=== PATIENT | male | born 1980 | race Caucasian/White ===

== ENCOUNTER 2023-10-21 08:00 | Outpatient (CLI) | payer MEDICAID ==
--- NOTE | 2023-10-22 18:47 | XRAY Report ---
PROCEDURE: Hand 3 View LT INDICATIONS: LEFT HAND PAIN TECHNIQUE: 3 views of the hand(s) acquired. COMPARISON: None. FINDINGS: Bones: There is a volar plate fracture of the middle phalanx of the second digit. No other acute fra cture or dislocation visualized. Soft tissues: No suspicious soft tissue calcifications or masses. IMPRESSION: Volar plate fracture at the base of the middle phalanx of the left second digit. Reviewed by: Alia Rockwell MD on 10/22/2023 6:46 PM PST Approved by: Alia Rockwell MD on 10/22/2023 6:46 PM PST Station ID: [id number]
== END 2023-10-21 23:59 | disposition home or self-care (01) ==
LOC: DI.S 08:00
PROVIDERS: ATTEND Registered Nurse
DX: S62.623A Displaced fracture of middle phalanx of left middle finger, initial encounter for closed fracture (principal)

== ENCOUNTER 2023-10-27 09:39 | Outpatient (CLI) | payer MEDICAID ==
--- NOTE | 2023-10-27 10:26 | XRAY Report ---
PROCEDURE: Finger(s) LT INDICATIONS: DISPLACED FRACTURE OF MIDDLE PHALANX OF LEFT INDEX TECHNIQUE: AP hand, 2 views of the second finger(s) acquired. COMPARISON: X-ray left hand 10/21/2023. FINDINGS: Bones: Stable appearance and alignment of the lateral plate fracture of the second middle phalanx ba se. No suspicious bony lesions. Soft tissues: No suspicious soft tissue calcifications or masses. IMPRESSION: Stable appearance of volar plate fracture at the base of the second middle phalanx. Reviewed by: West Chaudhary MD on 10/27/2023 10:25 AM PST Approved by: West Chaudhary MD on 10/27/2023 10:25 AM PST Station ID: [id number]
== END 2023-10-27 09:40 | disposition home or self-care (01) ==
LOC: DI.S 09:39
PROVIDERS: ATTEND Orthopaedic Surgery
DX: S62.621A Displaced fracture of middle phalanx of left index finger, initial encounter for closed fracture (principal); S62.621D Displaced fracture of middle phalanx of left index finger, subsequent encounter for fracture with routine healing

== ENCOUNTER 2023-12-07 08:00 | Outpatient (CLI) | payer MEDICAID ==
--- NOTE | 2023-12-07 14:45 | XRAY Report ---
PROCEDURE: Finger(s) LT INDICATIONS: LEFT 2ND FINGER INJURY TECHNIQUE: AP hand, 2 views of the second finger(s) acquired. COMPARISON: 10/27/2023 FINDINGS: Bones: Mildly displaced avulsion fracture of the second middle phalanx volar aspect. Joint remains n ormally aligned. Possible slight bridging callus present. Soft tissues: No suspicious soft tissue calcifications or masses. IMPRESSION: Healing avulsion fracture of the second middle phalanx base. Reviewed by: Deborah Cao MD on 12/07/2023 2:44 PM PST Approved by: Deborah Cao MD on 12/07/2023 2:44 PM PST Station ID: [id number]
== END 2023-12-07 23:59 | disposition home or self-care (01) ==
LOC: DI.WOS 08:00
PROVIDERS: ATTEND Orthopaedic Surgery
DX: S62.621D Displaced fracture of middle phalanx of left index finger, subsequent encounter for fracture with routine healing (principal)